=== PATIENT | male | born 1980 | race American Indian/Alaskan Native ===

== ENCOUNTER 2020-03-18 01:34 | Emergency (ER) | payer MEDICAID ==
[2020-03-18] MEDS ORDERED: IBUPROFEN 800 MG TAB PO ONE (02:34)
[2020-03-18] MEDS ORDERED: ACETAMINOPHEN 500 MG TAB PO ONE (02:35)
[2020-03-18] MEDS ORDERED: ONDANSETRON 4 MG ODT TAB PO ONE (04:47)
[2020-03-18] MEDS ORDERED: HYDROmorphone 1 MG/1 ML INJ IM ONE (04:47)
[2020-03-18] MEDS ORDERED: dexAMETHasone 4 MG/ML VIAL IM ONE (04:47)
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
[2020-03-18 06:33] VITALS: BP 155/90
== END 2020-03-18 06:10 | disposition home or self-care (01) ==
LOC: ED 01:34
DX: M54.42 Lumbago with sciatica, left side (principal); M72.2 Plantar fascial fibromatosis; M62.830 Muscle spasm of back; I10 Essential (primary) hypertension; E11.9 Type 2 diabetes mellitus without complications; J45.909 Unspecified asthma, uncomplicated; F17.200 Nicotine dependence, unspecified, uncomplicated; Z88.0 Allergy status to penicillin; Z79.899 Other long term (current) drug therapy; Z98.890 Other specified postprocedural states
CPT/HCPCS: 96372; 99283; J1100; J1170; Q0162

== ENCOUNTER 2021-01-15 11:21 | Emergency (ER) | payer MEDICAID ==
[2021-01-15 12:14] LABS: Basophils # (Auto) 0.1 K/mm3 (0.0-0.1); Basophils % (Auto) 0.6 % (0.0-1.8); Eosinophils # (Auto) 0.4 K/mm3 (0.0-0.4); Eosinophils % (Auto) 4.1 % (0.0-4.3); Hematocrit 42.7 % (35.5-45.6); Hemoglobin 14.8 gm/dl (11.8-15.2); Lymphocytes # (Auto) 2.3 K/mm3 (1.2-5.4); Lymphocytes % (Auto) 24.8 % (13.4-35.0); Mean Corpuscular HGB Conc 35 % (32-34); Mean Corpuscular Volume 78 fl (84-94); Monocytes # (Auto) 0.9 K/mm3 (0.0-0.8); Monocytes % (Auto) 9.4 % (0.0-7.3); Platelet Count 261 K/mm3 (140-440); Red Blood Count 5.48 M/mm3 (3.65-5.03); Red Cell Distribution Width 14.3 % (13.2-15.2)
[2021-01-15 12:30] LABS: Alanine Aminotransferase 42 units/L (7-56); Albumin 4.5 g/dL (3.9-5); BUN/Creatinine Ratio 18; Blood Urea Nitrogen 16 mg/dL (9-20); Calcium 9.7 mg/dL (8.4-10.2); Hemolysis Index 18
[2021-01-15 13:51] LABS: Bilirubin,Urine NEG (Negative); Blood,Urine NEG (Negative); Color,Urine Yellow (Yellow); Mucus,Urine FEW /HPF; Protein,Urine <15 mg/dL mg/dL (Negative); Urobilinogen,Urine < 2.0 mg/dL (<2.0); WBC,Urine < 1.0 /HPF (0.0-6.0)
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
== END 2021-01-15 17:35 | disposition home or self-care (01) ==
LOC: ED 11:21
DX: K92.1 Melena (principal); Z53.21 Procedure and treatment not carried out due to patient leaving prior to being seen by health care provider
CPT/HCPCS: 36415; 80053; 81001; 85025; 86850; 86900; 86901

== ENCOUNTER 2021-09-22 07:07 | Emergency (ER) | payer MEDICAID ==
[2021-09-22 09:57] LABS: Basophils # (Auto) 0.1 K/mm3 (0.0-0.1); Basophils % (Auto) 0.4 % (0.0-1.8); Eosinophils # (Auto) 0.5 K/mm3 (0.0-0.4); Eosinophils % (Auto) 4.1 % (0.0-4.3); Hematocrit 44.1 % (35.5-45.6); Hemoglobin 14.5 gm/dl (11.8-15.2); Lymphocytes # (Auto) 2.4 K/mm3 (1.2-5.4); Lymphocytes % (Auto) 19.5 % (13.4-35.0); Mean Corpuscular HGB Conc 33 % (32-34); Mean Corpuscular Volume 78 fl (84-94); Monocytes # (Auto) 0.9 K/mm3 (0.0-0.8); Monocytes % (Auto) 7.5 % (0.0-7.3); Platelet Count 256 K/mm3 (140-440); Red Blood Count 5.68 M/mm3 (3.65-5.03); Red Cell Distribution Width 14.5 % (13.2-15.2)
[2021-09-22 10:09] LABS: Alanine Aminotransferase 47 units/L (7-56); BUN/Creatinine Ratio 17; Blood Urea Nitrogen 17 mg/dL (9-20); Calcium 10.3 mg/dL (8.4-10.2); Hemolysis Index 35
[2021-09-22 10:21] LABS: Bilirubin,Direct < 0.2 mg/dL (0-0.2)
[2021-09-22 15:54] VITALS: BP 159/78
[2021-09-22] MEDS ORDERED: MORPHINE 4 MG/1 ML INJ IV ONE (16:08)
[2021-09-22] MEDS ORDERED: ONDANSETRON 4 MG/2 ML INJ IV ONE (16:08)
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
[2021-09-22 16:51] LABS: Bilirubin,Urine NEG (Negative); Blood,Urine NEG (Negative); Color,Urine Yellow (Yellow); Mucus,Urine FEW /HPF; Protein,Urine <15 mg/dL mg/dL (Negative); RBC,Urine < 1.0 /HPF (0.0-6.0); Urobilinogen,Urine < 2.0 mg/dL (<2.0); WBC,Urine < 1.0 /HPF (0.0-6.0)
[2021-09-22] MEDS ORDERED: fentaNYL 100 MCG/2 ML INJ IV ONE (17:18)
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
== END 2021-09-22 19:08 | disposition home or self-care (01) ==
LOC: ED 07:07
DX: K92.2 Gastrointestinal hemorrhage, unspecified (principal); R10.32 Left lower quadrant pain; I10 Essential (primary) hypertension; E11.9 Type 2 diabetes mellitus without complications; J45.909 Unspecified asthma, uncomplicated; F17.200 Nicotine dependence, unspecified, uncomplicated; Z88.0 Allergy status to penicillin; Z91.09 Other allergy status, other than to drugs and biological substances
CPT/HCPCS: 36415; 74177; 80048; 80076; 81001; 83690; 85025; 96374; 96375; 99284; J2405; J3010; Q9967

== ENCOUNTER 2022-02-16 07:45 | Emergency (ER) | payer MEDICAID ==
--- NOTE | 2022-02-16 09:06 | XRay Report ---
CHEST 2 VIEWS INDICATION / CLINICAL INFORMATION: Chest Pain. COMPARISON: None available. FINDINGS: SUPPORT DEVICES: None. HEART / MEDIASTINUM: No significant abnormality. LUNGS / PLEURA: No significant pulmonary or pleural abnormality. No pneumothorax. ADDITIONAL FINDINGS: No significant additional findings. IMPRESSION: 1. No acute findings. Signer Name: Seth Spence Jr, MD Signed: 02/16/2022 9:02 AM Workstation Name: [id number]
[2022-02-16 09:54] LABS: Basophils % (Auto) 0.4 % (0.0-1.8); Eosinophils # (Auto) 0.3 K/mm3 (0.0-0.4); Eosinophils % (Auto) 2.6 % (0.0-4.3); Hematocrit 45.5 % (35.5-45.6); Lymphocytes # (Auto) 1.7 K/mm3 (1.2-5.4); Lymphocytes % (Auto) 15.5 % (13.4-35.0); Mean Corpuscular HGB Conc 33 % (32-34); Mean Corpuscular Volume 77 fl (84-94); Monocytes # (Auto) 0.9 K/mm3 (0.0-0.8); Monocytes % (Auto) 8.3 % (0.0-7.3); Platelet Count 237 K/mm3 (140-440); Red Blood Count 5.94 M/mm3 (3.65-5.03); Red Cell Distribution Width 14.9 % (13.2-15.2)
[2022-02-16 10:19] LABS: Alanine Aminotransferase 37 units/L (7-56); BUN/Creatinine Ratio 13; Blood Urea Nitrogen 12 mg/dL (9-20); Calcium 10.1 mg/dL (8.4-10.2); Hemolysis Index 15
[2022-02-16 14:19] VITALS: BP 137/101
--- NOTE | 2022-02-16 14:28 | Emergency Department Report ---
ED Chest Pain HPI - General Chief Complaint: Chest Pain Stated Complaint: CHEST PAIN/HBP/VOMITING Time Seen by Provider: 02/16/22 14:25 Source: patient Mode of arrival: Ambulatory Limitations: No Limitations - History of Present Illness Severity scale (0 -10): 8 - Related Data Home Medications Medication Instructions Recorded Confirmed Last Taken Duloxetine HCl [Cymbalta] 60 mg PO QDAY 10/11/17 10/11/17 10/09/17 Losartan/Hydrochlorothiazide 1 each PO QDAY 10/11/17 10/11/17 10/09/17 [Hyzaar 100-12.5 TAB] amLODIPine 5 mg PO DAILY 10/11/17 10/11/17 10/09/17 Previous Rx's Medication Instructions Recorded Last Taken Type Gabapentin 300 mg PO Q8H PRN #90 capsule 03/18/20 Unknown Rx Naproxen 500 mg PO Q12H PRN #30 tablet 03/18/20 Unknown Rx methOCARBAMOL [Robaxin TAB] 750 mg PO Q8H PRN #30 tablet 03/18/20 Unknown Rx predniSONE [Deltasone] 60 mg PO QDAY #15 tab 03/18/20 Unknown Rx traMADoL [Ultram] 50 mg PO Q6HR PRN #10 tablet 03/18/20 Unknown Rx Ondansetron [Zofran Odt] 4 mg PO Q8HR PRN #14 tab.rapdis 09/22/21 Unknown Rx traMADoL [Ultram 50 MG tab] 50 mg PO Q4HR PRN #14 tablet 09/22/21 Unknown Rx Allergies Allergy/AdvReac Type Severity Reaction Status Date / Time morphine Allergy Hives Verified 02/16/22 07:56 Penicillins Allergy Hives Verified 02/16/22 07:56 ED Review of Systems ROS: Stated complaint: CHEST PAIN/HBP/VOMITING Other details as noted in HPI ED Past Medical Hx - Past Medical History Hx Hypertension: Yes Hx Diabetes: Yes Hx Asthma: Yes Additional medical history: bowel obstruction; chronic lumbar radiculopathy - Surgical History Additional Surgical History: bowel resection. Nerve sx to RT arm - Social History Smoking Status: Current Every Day Smoker Substance Use Type: Alcohol - Medications Home Medications: Home Medications Medication Instructions Recorded Confirmed Last Taken Type Duloxetine HCl [Cymbalta] 60 mg PO QDAY 10/11/17 10/11/17 10/09/17 History Losartan/Hydrochlorothiazide 1 each PO QDAY 10/11/17 10/11/17 10/09/17 History [Hyzaar 100-12.5 TAB] amLODIPine 5 mg PO DAILY 10/11/17 10/11/17 10/09/17 History Gabapentin 300 mg PO Q8H PRN #90 capsule 03/18/20 Unknown Rx Naproxen 500 mg PO Q12H PRN #30 tablet 03/18/20 Unknown Rx methOCARBAMOL [Robaxin TAB] 750 mg PO Q8H PRN #30 tablet 03/18/20 Unknown Rx predniSONE [Deltasone] 60 mg PO QDAY #15 tab 03/18/20 Unknown Rx traMADoL [Ultram] 50 mg PO Q6HR PRN #10 tablet 03/18/20 Unknown Rx Ondansetron [Zofran Odt] 4 mg PO Q8HR PRN #14 tab.rapdis 09/22/21 Unknown Rx traMADoL [Ultram 50 MG tab] 50 mg PO Q4HR PRN #14 tablet 09/22/21 Unknown Rx ED Physical Exam - General Limitations: No Limitations ED Course Vital Signs 02/16/22 02/16/22 07:51 14:18 Temperature 98.8 F Pulse Rate 76 Respiratory 18 Rate Blood Pressure 203/125 137/101 [Right] O2 Sat by Pulse 99 Oximetry ED Medical Decision Making - Lab Data Result diagrams: 02/16/22 09:08 02/16/22 09:08 Critical care attestation.: If time is entered above; I have spent that time in minutes in the direct care of this critically ill patient, excluding procedure time. ED Disposition Clinical Impression: Chest pain Qualifiers: Chest pain type: unspecified Qualified Code(s): R07.9 - Chest pain, unspecified Disposition: 01 HOME / SELF CARE / HOMELESS Is pt being admited?: No Does the pt Need Aspirin: No Condition: Stable Instructions: Nonspecific Chest Pain, Adult, [id number] Additional Instructions: Continue blood pressure medication as previously prescribed. Follow-up with your primary care provider or cardiology for further evaluation and management. Return to the emergency department as needed. Referrals: AUGUST GOMEZ MD [Staff Physician] - 3-5 Days KARISSA YEAGER MD [Staff Physician] - 3-5 Days Forms: Work/School Release Form(ED) Time of Disposition: 14:27
--- NOTE | 2022-02-18 09:37 | Electrocardiograph Report ---
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
== END 2022-02-16 14:28 | disposition home or self-care (01) ==
LOC: ED 07:45
DX: R07.89 Other chest pain (principal); I10 Essential (primary) hypertension; E11.9 Type 2 diabetes mellitus without complications; J45.909 Unspecified asthma, uncomplicated; F17.200 Nicotine dependence, unspecified, uncomplicated; Z72.89 Other problems related to lifestyle; Z79.899 Other long term (current) drug therapy; Z88.5 Allergy status to narcotic agent; Z88.0 Allergy status to penicillin
CPT/HCPCS: 36415; 71046; 80053; 84484; 85025; 93005; 99283